=== PATIENT | female | born 1950 | race Caucasian/White ===

== ENCOUNTER 2021-01-23 12:38 | Emergency (ER) | payer MEDICARE, OTHER | END 2021-01-23 13:40 | disposition home or self-care (01) | LOC: ER1 12:38 | DX: S61.211A Laceration without foreign body of left index finger without damage to nail, initial encounter (principal); I11.9 Hypertensive heart disease without heart failure; Z88.0 Allergy status to penicillin; Z79.01 Long term (current) use of anticoagulants; Z91.040 Latex allergy status; Z88.1 Allergy status to other antibiotic agents; Z88.8 Allergy status to other drugs, medicaments and biological substances; W22.8XXA Striking against or struck by other objects, initial encounter; Y92.239 Unspecified place in hospital as the place of occurrence of the external cause | CPT/HCPCS: 12001; 99283 ==

== ENCOUNTER → 2021-02-27 | Outpatient (CLI) | payer MEDICARE, OTHER | LOC: EXRD 15:18 | DX: M47.816 Spondylosis without myelopathy or radiculopathy, lumbar region (principal); M85.88 Other specified disorders of bone density and structure, other site; M51.34 Other intervertebral disc degeneration, thoracic region | CPT/HCPCS: 72070; 72100 ==